=== PATIENT | female | born 1925 | race Caucasian/White ===

== ENCOUNTER 2016-12-21 11:01 | Emergency (ER) | payer OTHER ==
[2016-12-21] MEDS ORDERED: ONDANSETRON HCL 4 MG/2 ML SOL IV ONE (11:23)
[2016-12-21] MEDS ORDERED: ONDANSETRON HCL 4 MG/2 ML SOL ONE (11:24)
[2016-12-21] MEDS ORDERED: SODIUM CHLORIDE 0.9% FLUSH 10 ML SOL IV PRN (12:10)
[2016-12-21 12:14] LABS: HEMATOCRIT 34 % (35-47); MEAN CORPUSCULAR HGB CONC 33.1 gm/dl (32.0-36.0); MEAN CORPUSCULAR VOLUME 92 fL (81-99)
[2016-12-21 12:24] LABS: CALCIUM 7.7 mg/dl (8.5-10.1); POTASSIUM 3.9 mMol/L (3.5-5.1)
[2016-12-21] MEDS ORDERED: MORPHINE SULFATE 10 MG/ML SOL IV ONE (12:29)
[2016-12-21] MEDS ORDERED: MORPHINE SULFATE 10 MG/ML SOL ONE (12:32)
[2016-12-21 12:34] LABS: BASOPHILS % (MANUAL) 0 % (0-3); EOSINOPHILS % (MANUAL) 0 % (0-9); LYMPHOCYTES % (MANUAL) 2 % (10-50); NORMAL RBCS NORMAL RBCS
[2016-12-21 12:56] VITALS: TEMP 98.2
[2016-12-21 13:31] LABS: APPEARANCE,URINE Slightly Cloudy; BILIRUBIN,URINE NEGATIVE (NEGATIVE); COLOR,URINE Yellow; GLUCOSE, URINE (UA) TRACE (NEGATIVE); KETONES,URINE NEGATIVE (NEGATIVE); LEUKOCYTE ESTERASE ,URINE 1+ (NEGATIVE); NITRATE,URINE POSITIVE (NEGATIVE); OCCULT BLOOD,URINE 2+ (NEG-TRACE); PH,URINE 5.5; UROBILINOGEN,URINE 0.2 (0.2-1.0 EU)
[2016-12-21 13:43] LABS: WBC,URINE 80-100 (0-5AV/HPF)
[2016-12-21 15:14] VITALS: BP 173/84; PULSE 88; RESP 19; O2SAT 93
== END 2016-12-21 13:37 | disposition short-term general hospital (02) | DRG 562 ==
LOC: ED 11:01
DX: S42.212A Unspecified displaced fracture of surgical neck of left humerus, initial encounter for closed fracture (principal); S72.002A Fracture of unspecified part of neck of left femur, initial encounter for closed fracture; W19.XXXA Unspecified fall, initial encounter
CPT/HCPCS: 36415; 71010; 73030; 73521; 80048; 81001; 85007; 85027; 85610; 85730; 87077; 87088; 87186; 93005; 96374; 96375; 99284; 99285; J2270; J2405

== ENCOUNTER 2017-01-06 12:00 | Outpatient (CLI) | payer OTHER ==
[2016-12-21 15:14] VITALS: O2SAT 93
== END 2017-01-06 12:01 | disposition home or self-care (01) | DRG 561 ==
LOC: CONVCARE 12:00
PROVIDERS: ATTEND Orthopaedic Surgery
DX: S42.222D 2-part displaced fracture of surgical neck of left humerus, subsequent encounter for fracture with routine healing (principal)
CPT/HCPCS: 73030; 73502

== ENCOUNTER 2017-02-06 12:08 | Outpatient (CLI) | payer OTHER ==
[2016-12-21 15:14] VITALS: O2SAT 93
== END 2017-02-06 12:09 | disposition home or self-care (01) | DRG 561 ==
LOC: CONVCARE 12:08
PROVIDERS: ATTEND Orthopaedic Surgery
DX: S72.142D Displaced intertrochanteric fracture of left femur, subsequent encounter for closed fracture with routine healing (principal); S42.212D Unspecified displaced fracture of surgical neck of left humerus, subsequent encounter for fracture with routine healing
CPT/HCPCS: 73030; 73502

== ENCOUNTER 2017-03-24 12:01 | Outpatient (CLI) | payer OTHER ==
[2016-12-21 15:14] VITALS: O2SAT 93
== END 2017-03-24 12:02 | disposition home or self-care (01) | DRG 561 ==
LOC: CONVCARE 12:01
PROVIDERS: ATTEND Orthopaedic Surgery
DX: S72.142D Displaced intertrochanteric fracture of left femur, subsequent encounter for closed fracture with routine healing (principal); S42.212D Unspecified displaced fracture of surgical neck of left humerus, subsequent encounter for fracture with routine healing
CPT/HCPCS: 73030; 73502